=== PATIENT | female | born 2000 | race Caucasian/White ===

== ENCOUNTER 2018-09-14 17:34 | Emergency (ER) | payer BC ==
[2018-09-14] MEDS: CEPHALEXIN 500 MG CAP PO (18:59)
[2018-09-14] MEDS: DIPHENHYDRAMINE 25 MG CAP PO (18:59)
[2018-09-14] MEDS: predniSONE 20 MG TAB PO (18:59)
== END 2018-09-14 19:33 | disposition home or self-care (01) ==
LOC: FTE 17:34
DX: S90.562A Insect bite (nonvenomous), left ankle, initial encounter (principal); L08.9 Local infection of the skin and subcutaneous tissue, unspecified; W57.XXXA Bitten or stung by nonvenomous insect and other nonvenomous arthropods, initial encounter; Y92.89 Other specified places as the place of occurrence of the external cause
CPT/HCPCS: 99283; J7512